=== PATIENT | female | born 1950 | race Caucasian/White ===

== ENCOUNTER → 2019-08-21 | Day surgery (SDC) | payer MEDICARE ==
--- NOTE | 2019-08-21 11:05 | MMO ---
Stereotactic guided biopsy left breast microcalcifications Surgical specimen mammography Left diagnostic mammogram post biopsy HISTORY: Abnormal mammogram. Microcalcifications. FINDINGS: After explaining the procedure and answering all questions, the microcalcification cluster at the superior aspect of left breast was visualized. Sterile technique, buffered local anesthesia, stereotactic guidance, and a superior approach were used to carefully advance the tip of a 10-gauge v acuum-assisted needle into the region of the microcalcification cluster. Position was confirmed with stereotactic imaging. A total of 10 specimens were obtained. Surgical specimen mammography shows the microcalcification cluster in the samples. Localization clip was placed in the biopsy bed under stereotactic control. Needle was removed and hemostasis obtained using direct pressure. Patient tolerated the procedure well and was eventually dismissed in good cond ition. Postprocedure diagnostic mammogram shows the medical calcification cluster to have been removed. Smal l amount of gas and the localization clip are now present in the biopsy bed. There is heterogeneously dense fibroglandular tissue. IMPRESSION: Technically successful stereotactic guided biopsy left breast microcalcifications. Pathol ogy is pending.
== END ==
LOC: MAMMO 06:58
PROVIDERS: ATTEND Internal Medicine Hematology & Oncology
PROC: 0H9U3ZX Drainage of Left Breast, Percutaneous Approach, Diagnostic (ICD-10-PCS; principal; 2019-08-21)
DX: D24.2 Benign neoplasm of left breast (principal)
CPT/HCPCS: 19081; 76098; 88305